=== PATIENT | female | born 1970 | race Caucasian/White ===

== ENCOUNTER → 2020-11-07 | Outpatient (CLI) | payer OTHER ==
[~2020-11-07] MED LIST: BCP; BENADRYL25 MG PO; DYRENIUM100 MG; MELOXICAM7.5 MG; PREDNISONE 5 MG5 MG PO
== END ==
LOC: BC 09:50
PROVIDERS: ATTEND Nurse Practitioner
DX: Z12.31 Encounter for screening mammogram for malignant neoplasm of breast (principal); N64.89 Other specified disorders of breast